=== PATIENT | female | born 1980 ===

== ENCOUNTER 2020-10-11 07:25 | Inpatient (IN) | payer OTHER ==
[~2020-10-11] VITALS: Ht 170.2 cm; Wt 75.7 kg
[2020-10-11] MEDS ORDERED: CHILDREN'S ASPI81 MG (08:47)
[2020-10-11] MEDS ORDERED: PRENATAL TABLE1 EAC3 (08:48)
[2020-10-11] MEDS ORDERED: INTEGRA F CAPS1 EAC1 (14:56)
== END 2020-10-13 13:51 | disposition home or self-care (01) | DRG 807 ==
LOC: LDR 07:25 → OB/GYN 19:39
PROVIDERS: ADMIT Obstetrics & Gynecology; ATTEND Obstetrics & Gynecology
PROC: 10E0XZZ Delivery of Products of Conception, External Approach (ICD-10-PCS; principal; 2020-10-11)
PROC: 4A1HXFZ Monitoring of Products of Conception, Cardiac Rhythm, External Approach (ICD-10-PCS; 2020-10-11)
DX: O98.82 Other maternal infectious and parasitic diseases complicating childbirth (principal); Z37.0 Single live birth; Z3A.40 40 weeks gestation of pregnancy; B95.1 Streptococcus, group B, as the cause of diseases classified elsewhere; Z20.822 Contact with and (suspected) exposure to COVID-19